=== PATIENT | male | born 1950 | race Caucasian/White ===

== ENCOUNTER 2017-10-04 04:53 | Emergency (ER) | payer MEDICARE ==
[~2017-10-04 04:53] MED LIST: CLON0.1T14; LOSA100T63 PO; OXYC-865 PO; TAMS0.4C25 PO
[2017-10-04] MEDS ORDERED: GABA-549 PO (05:10)
[2017-10-04] MEDS ORDERED: LABE200T31 PO (05:10)
[2017-10-04 05:11] VITALS: BP 200/96
--- NOTE | 2017-10-04 05:17 | ER Report ---
History and Physical Time Seen By MD: 05:11 Hx. of Stated Complaint: PTS HAVING BACK PAIN RADIATING DOWN THE LEFT LEG. PT HAS BEEN TRAVELING IN THE CAR ALL DAY HPI/ROS CHIEF COMPLAINT: back pain, left leg pain HISTORY OF PRESENT ILLNESS: This is a 67 year old male. He has been traveling from [facility] to his home in [place]. He has a history of surgeries and problems in the low back. Having increased pain with pain radiating to left buttock and left leg. No swelling in leg. No weakness. No loss of control of bowel or bladder function. Allergies: Coded Allergies: hydralazine (Unverified Allergy, Unknown, UNKNOWN, 10/04/17) NSAIDS (Non-Steroidal Anti-Inflamma (Unverified Adverse Reaction, Intermediate, GI DISTRESS, 10/04/17) due to ulcer hx Uncoded Allergies: teramycin (Allergy, Unknown, UNKNOWN, 12/18/13) Home Meds Active Scripts Oxycodone Hcl/Acetaminophen (PERCOCET 10-325 MG TABLET) 1 Each Tablet, 1 EACH PO Q4H Y for PAIN, #15 TAB 0 Refills Prov:BRANDY CUMMINGS MD 10/04/17 Diazepam (VALIUM) 10 Mg Tablet, 10 MG PO TID, #15 TAB 0 Refills Prov:BRANDY CUMMINGS MD 10/04/17 Oxycodone Hcl/Acetaminophen (PERCOCET 5-325 MG TABLET) 1 Each Tablet, 1 EACH PO Q4-6H Y for PAIN, #12 Prov:NA VELA DO 12/18/13 Reported Medications Gabapentin (GABAPENTIN) 300 Mg Capsule, 800 MG PO TID, CAPSULE 10/04/17 Labetalol Hcl (LABETALOL HCL) 200 Mg Tablet, 200 MG PO QDAY 10/04/17 Tamsulosin Hcl (FLOMAX) 0.4 Mg Cap.er.24h, 0.4 MG PO QDAY 12/18/13 Discontinued Reported Medications Losartan Potassium (COZAAR) 100 Mg Tablet, 100 MG PO QDAY 12/18/13 Clonidine HCl (Clonidine HCl ER) 0.1 Mg Tab.er.12h 12/18/13 Reviewed Nurses Notes: Yes Hx Smoking: Yes (occ cigar) Smoking Status: Light Tobacco Smoker Hx Substance Use Disorder: No Hx Alcohol Use: Yes (occ) Constitutional Vital Sign - Last 24 Hours 10/04/17 10/04/17 05:00 05:11 Temp 97.7 Pulse 102 Resp 18 B/P (MAP) 200/96 (130) Pulse Ox 93 O2 Delivery Room Air Physical Exam General appearance: alert no distress. Back: Thoracic spine has no spinal or paraspinal tenderness to palpation. Lumbar spine has both spinal and left moderate paraspinal tenderness Gastroinal: Abdomen is soft, non tender, no masses.. Skin: No lesions and no rashes. Vascular: Normal capillary refill and pulses to feet. Neurological: Motor function: leg strength normal and symmetric for both legs Sensory function: normal for all leg dermatomes. Straight leg raise negative to 70 degrees. DIFFERENTIAL DIAGNOSIS: After history and physical exam differential diagnosis was considered for back pain including muscular strain, herniated disc, intra- abdominal and renal causes. Medical Decision Making ED Course/Re-evaluation ED Course Gave Dilaudid 2mg IM. Prescription for Percocet and Valium. No red flag symptoms at this time. Discussed need to follow-up with regular doctor on return to [place]. Prescriptions temporary to get to his regular doctor to refill medicines. Decision to Disposition Date: Oct 04, 2017 Decision to Disposition Time: 05:17 Depart Departure Latest Vital Signs Vital Signs Date Time Temp Pulse Resp B/P (MAP) Pulse Ox O2 Delivery O2 Flow Rate FiO2 10/04/17 05:11 200/96 (130) 10/04/17 05:00 97.7 102 18 93 Room Air Impression: Primary Impression: Low back pain Condition: Improved Disposition: HOME OR SELF-CARE New Scripts Oxycodone Hcl/Acetaminophen (PERCOCET 10-325 MG TABLET) 1 Each Tablet 1 EACH PO Q4H Y for PAIN, #15 TAB 0 Refills Prov: BRANDY CUMMINGS MD 10/04/17 Diazepam (VALIUM) 10 Mg Tablet 10 MG PO TID, #15 TAB 0 Refills Prov: BRANDY CUMMINGS MD 10/04/17 Patient Instructions: Chronic Back Pain (ED), Sciatica (ED) Additional Instructions: Take Percocet 10/325, one every 4 hours as needed for pain. Take Valium 10mg, one every 8 hours as a muscle relaxant. Follow-up with your regular doctor on return to [place] in a few days. Problem Qualifiers Primary Impression: Low back pain Chronicity: acute Back pain laterality: left Sciatica presence: with sciatica Sciatica laterality: sciatica of left side Qualified Codes: M54.42 - Lumbago with sciatica, left side BRANDY CUMMINGS MD Oct 04, 2017 05:17
[2017-10-04] MEDS ORDERED: HYDROmorphone HCL 2 MG/ML SDV IM ONE (05:20)
[2017-10-04] MEDS ORDERED: DIAZ-305 PO (05:21)
[2017-10-04] MEDS ORDERED: OXYC-870 PO (05:21)
== END 2017-10-04 05:35 | disposition home or self-care (01) ==
LOC: ER 05:00
DX: M54.42 Lumbago with sciatica, left side (principal)
CPT/HCPCS: 96372; 99282; J1170